=== PATIENT | male | born 1955 | race Caucasian/White ===

== ENCOUNTER 2018-03-10 15:45 | Outpatient (CLI) | payer OTHER ==
--- NOTE | 2018-03-10 21:21 | MRI Report ---
Reason: MILD TRAUMATIC BRAIN INJURY, WO LOSS OF CONSCIOUSN Procedure Date: 03/10/2018 Accession Number: [id number] / [id number] Procedure: MRI - Brain W/O CPT Code: FULL RESULT: EXAM: MRI BRAIN WITHOUT CONTRAST EXAM DATE: 03/10/2018 04:37 PM. CLINICAL HISTORY: 63-year-old male, mild traumatic brain injury. No loss of consciousness. COMPARISON: None. TECHNIQUE: Multiplanar, multisequence T1-weighted and fluid-sensitive MR sequences of the brain were performed. Sequences optimized for routine evaluation. Other: None. IV Contrast: None. FINDINGS: Brain Volume: Normal for age. Parenchyma/Dura: No mass, acute infarct or hemorrhage. No white matter lesions identified. No parenchymal foci of susceptibility artifact. Ventricles/Cisterns: No hydrocephalus. No abnormal extra-axial fluid collection or hemorrhage. Orbits: Symmetric and unremarkable. Sella Turcica: The pituitary gland, cavernous sinuses, suprasellar cistern and optic chiasm are unremarkable. IAC: Symmetric and unremarkable. Vasculature: Normal signal flow void is seen in the major arterial structures at the skull base. Sinuses: Mild to moderate medel sinus mucosal thickening. Bones: No focal pathologic appearing marrow signal changes. Other: None. IMPRESSION: 1. Normal brain MRI. No MRI evidence of acute intracranial abnormality. Specifically, no evidence of acute or subacute infarct, acute intracranial hemorrhage, mass, midline shift, or hydrocephalus. No white matter lesions. No MRI evidence of traumatic brain injury/diffuse axonal injury. [facility]
== END 2018-03-10 15:46 | disposition home or self-care (01) ==
LOC: DI 15:45
PROVIDERS: ATTEND Psychiatry & Neurology Neurology
DX: S06.9X0S Unspecified intracranial injury without loss of consciousness, sequela (principal)
CPT/HCPCS: 70551

== ENCOUNTER 2018-11-17 08:25 | Outpatient (CLI) | payer OTHER ==
--- NOTE | 2018-11-17 17:57 | MRI Report ---
Reason: RADICULOPATHY, CERVICAL REGION Procedure Date: 11/17/2018 Accession Number: [id number] / [id number] Procedure: MRI - Cervical Spine W/O CPT Code: FULL RESULT: EXAM: MRI CERVICAL SPINE WITHOUT CONTRAST EXAM DATE: 11/17/2018 09:10 AM. CLINICAL HISTORY: Right arm numbness and weakness. COMPARISONS: None. TECHNIQUE: Multiplanar, multisequence T1-weighted and fluid-sensitive sequences of the cervical spine without contrast. Other: None. FINDINGS: Neurologic Structures: The visualized posterior fossa structures are unremarkable. No signal abnormality in the visualized spinal cord. Alignment: No scoliosis or spondylolisthesis. Bone Marrow: No acute fracture or bone lesions. Interspace Levels/Facets: The craniocervical junction is unremarkable. C1-C2: Unremarkable. C2-C3: Mild to moderate left facet arthropathy. Mild to moderate left foraminal stenosis. C3-C4: Bilateral uncovertebral joint osteophytes. Mild left and moderate right facet arthropathy. Severe right and moderate to severe left foraminal stenoses. C4-C5: Severe left and mild right facet arthropathy. Moderate to severe left and mild right foraminal stenoses. C5-C6: Degenerative endplate changes. Moderate to severe disk space narrowing. Small disk bulge/osteophyte complex and bilateral uncovertebral joint osteophytes. Mild canal stenosis. Severe foraminal stenoses. C6-C7: Small disk bulge. Moderate to severe left and mild right foraminal stenoses. C7-T1: Moderate left and mild to moderate right facet arthropathy. Moderate right and mild to moderate left foraminal stenoses. T1-T2: Tiny posterior right paracentral disk protrusion/osteophyte complex. Moderate to severe right and mild to moderate left foraminal stenoses. Musculature: Normal. No edema or fatty atrophy. Other: There is a probable nondominant left vertebral artery variant. Otherwise, the paravertebral soft tissues are unremarkable. IMPRESSION: 1. Multilevel degenerative disk changes, facet arthropathy, and osteophytosis. There are varying degrees of stenoses. Please see above for level by level details. [facility]
== END 2018-11-17 08:26 | disposition home or self-care (01) ==
LOC: DI 08:25
DX: M50.30 Other cervical disc degeneration, unspecified cervical region (principal); M48.02 Spinal stenosis, cervical region; M47.812 Spondylosis without myelopathy or radiculopathy, cervical region
CPT/HCPCS: 72141

== ENCOUNTER 2020-06-04 23:02 | Emergency (ER) | payer OTHER ==
--- NOTE | 2020-06-04 23:36 | ED Physician Documentation ---
PD HPI ABD PAIN - Stated complaint Stated Complaint: RT SIDE PX - Chief complaint Chief Complaint: Abd Pain - History obtained from History obtained from: Patient - History of Present Illness Timing - onset: Enter time (20:00), Today Timing - details: Abrupt onset, Intermittant, Waxing and waning Pain level now: 3 Quality: Pain Location: Other (right flank) Radiation: Lower back Improved by: Laying still (positional component "to some extent" (per patient)) Worsened by: Other (no apparent exacerbating factors) Associated symptoms: No: Fever, Nausea, Vomiting, Dysuria, Hematuria Similar symptoms before: Other (has had similar, milder episodes which were self-limited and thus did not seek medical attention in the past) Recently seen: Not recently seen - Additional information Additional information: c/o episodic right flank pain since 8 PM tonight. Initial onset while at home at rest (watching TV) Review of Systems Constitutional: denies: Fever, Chills, Sweats Cardiac: reports: Reviewed and negative Respiratory: reports: Reviewed and negative GI: denies: Abdominal Pain, Nausea, Vomiting : denies: Dysuria, Frequency, Hematuria Skin: denies: Rash PD PAST MEDICAL HISTORY - Past Medical History Past Medical History: Yes Cardiovascular: High cholesterol - Present Medications Home Medications: Ambulatory Orders Medication Instructions Recorded Confirmed Atorvastatin [Lipitor] 20 mg PO 06/05/20 Beclomethasone 80 Mcg [Qvar 80] 2 puffs INH DAILY 06/05/20 06/05/20 Budesonide [Entocort EC] 9 mg PO DAILY 06/05/20 06/05/20 Diclofenac Sodium 50 mg PO BID PRN #20 tablet. 06/05/20 Diclofenac Sodium [Voltaren TOP 06/05/20 Arthritis Pain] Montelukast [Singulair] 10 mg PO DAILY PM 06/05/20 06/05/20 - Allergies Allergies/Adverse Reactions: Allergies Allergy/AdvReac Type Severity Reaction Status Date / Time No Known Drug Allergies Allergy Verified 06/04/20 23:06 - Living Situation Living Situation: reports: With family Living Arrangement: reports: At home PD ED PE NORMAL - Vitals Vital signs reviewed: Yes - General General: Alert and oriented X 3, No acute distress, Well developed/nourished - Cardiac Cardiac: RRR, No murmur - Respiratory Respiratory: No respiratory distress, Clear bilaterally - Abdomen Abdomen: Soft, Non tender - Derm Derm: Normal color, Warm and dry, No rash Results - Vitals Vitals: Vital Signs - 24 hr 06/04/20 06/05/20 23:06 02:13 Temperature 36.6 C 36.5 C Heart Rate 69 63 Respiratory 16 14 Rate Blood Pressure 135/81 H 125/85 H O2 Saturation 98 99 Oxygen O2 Source Room air - Labs Labs: Laboratory Tests 06/04/20 06/04/20 06/04/20 00:04 00:04 23:40 WBC 8.6 RBC 4.39 L Hgb 14.4 Hct 43.5 MCV 99.1 H MCH 32.8 H MCHC 33.1 RDW 12.2 Plt Count 240 MPV 8.8 Neut # (Auto) 5.2 Lymph # (Auto) 2.3 [place] # (Auto) 0.8 Eos # (Auto) 0.2 Baso # (Auto) 0.1 Absolute Nucleated RBC 0.00 Nucleated RBC % 0.0 Sodium 137 Potassium 3.8 Chloride 104 Carbon Dioxide 24 Anion Gap 9.0 BUN 26 H Creatinine 1.0 Estimated GFR (MDRD) 75 L Glucose 101 H Calcium 9.3 Total Bilirubin 0.4 AST 20 ALT 22 Alkaline Phosphatase 54 Total Protein 7.1 Albumin 4.5 Globulin 2.6 Albumin/Globulin Ratio 1.7 Lipase 36 Urine Color YELLOW Urine Clarity CLEAR Urine pH 6.5 Ur Specific Nichols <=1.005 Urine Protein NEGATIVE Urine Glucose (UA) NEGATIVE Urine Ketones NEGATIVE Urine Occult Blood NEGATIVE Urine Nitrite NEGATIVE Urine Bilirubin NEGATIVE Urine Urobilinogen 0.2 (NORMAL) Ur Leukocyte Esterase NEGATIVE Ur Microscopic Review NOT INDICATED Urine Culture Comments NOT INDICATED - Rads (name of study) CT A/P Radiology: Prelim report reviewed, See rad report PD MEDICAL DECISION MAKING - ED course Complexity details: reviewed results, re-evaluated patient, considered differential, d/w patient ED course: test results are unrevealing of etiology of patient's right flank pain, including blood tests, UA, and CT A/P. Incidental finding of "nonspecific 1.1 cm left lower lobe subpleural density" (per radiologist's report) is d/w patient and f/u with PMD recommended. Departure - Departure Disposition: 01 Home, Self Care Clinical Impression: Flank pain Condition: Good Instructions: ED Flank Pain Uncertain Cause Follow-Up: Sasha Patten MD [Primary Care Provider] - Within 1 week Prescriptions: Diclofenac Sodium 50 mg PO BID PRN #20 tablet.dr RAMACHANDRAN Reason: Pain Discharge Date/Time: 06/05/20 02:13
[2020-06-05 00:09] LABS: BASOPHILS # (AUTO) 0.1 10^3/uL (0.0-0.1); BASOPHILS % (AUTO) 0.7 %; EOSINOPHILS # (AUTO) 0.2 10^3/uL (0.0-0.7); EOSINOPHILS % (AUTO) 2.4 %; HGB - HEMOGLOBIN 14.4 g/dL (14.0-18.0); LYMPHOCYTES # (AUTO) 2.3 10^3/uL (1.5-3.5); LYMPHOCYTES % (AUTO) 27.1 %; MEAN CORPUSCULAR HEMOGLOBIN 32.8 pg (27.0-31.0); MEAN CORPUSCULAR HGB CONC 33.1 g/dL (32.0-36.0); MEAN CORPUSCULAR VOLUME 99.1 fL (80.0-94.0); MEAN PLATELET VOLUME 8.8 fL (7.4-11.4); MONOCYTES # (AUTO) 0.8 10^3/uL (0.0-1.0); MONOCYTES % (AUTO) 9.3 %; NEUTROPHILS # (AUTO) 5.2 10^3/uL (1.5-6.6); NEUTROPHILS % (AUTO) 60.2 %; PLT - PLATELET COUNT 240 10^3/uL (130-450); RED BLOOD COUNT 4.39 10^6/uL (4.70-6.10); RED CELL DISTRIBUTION WIDTH 12.2 % (12.0-15.0); WHITE BLOOD COUNT 8.6 x10^3/uL (4.8-10.8)
[2020-06-05 00:27] LABS: ALBUMIN 4.5 g/dL (3.2-5.5); ALBUMIN/GLOBULIN RATIO 1.7 (1.0-2.2); BILIRUBIN,TOTAL 0.4 mg/dL (0.2-1.0); CALCIUM 9.3 mg/dL (8.5-10.3); TOTAL PROTEIN 7.1 g/dL (6.7-8.2)
[2020-06-05] MEDS ORDERED: KETOROLAC 60 MG/2 ML VIAL IM STA (01:11)
[2020-06-05 01:23] LABS: BILIRUBIN,URINE NEGATIVE (NEGATIVE); CLARITY,URINE CLEAR (CLEAR); GLUCOSE, URINE (UA) NEGATIVE (NEGATIVE); KETONES,URINE (UA) NEGATIVE (NEGATIVE); LEUKOCYTE ESTERASE, URINE NEGATIVE (NEGATIVE); NITRITE,URINE NEGATIVE (NEGATIVE); OCCULT BLOOD,URINE NEGATIVE (NEGATIVE); PH,URINE 6.5 PH (5.0-7.5); PROTEIN,URINE NEGATIVE (NEGATIVE); UROBILINOGEN,URINE 0.2 (NORMAL) E.U./dL (NORMAL)
[2020-06-05 02:14] VITALS: BP 125/85
--- NOTE | 2020-06-05 08:09 | CT Report ---
PROCEDURE: Abdomen/Pelvis WO INDICATIONS: right flank pain TECHNIQUE: Noncontrast 5 mm thick sections acquired from the diaphragms to the symphysis. 5 mm coronal and sagi ttal reformats were then performed. For radiation dose reduction, the following was used: automated exposure control, adjustment of mA and/or kV according to patient size. COMPARISON: None. FINDINGS: Image quality: Excellent. ABDOMEN: Lung bases: There is a 1.4 cm subpleural nodule with central lucency in the lower lobe. Heart size i s normal. Solid organs: Liver and spleen are normal in size. Gallbladder is normal. Pancreas is normal in co ntours. No adrenal nodules. Kidneys are normal in size, without hydronephrosis or nephrolithiasis. Peritoneum and bowel: Unenhanced bowel loops demonstrate normal wall thickness and caliber. Normal appendix. No free fluid or air. Nodes and vessels: No retroperitoneal or mesenteric adenopathy by size criteria. Aorta and inferior vena cava are normal in caliber. Miscellaneous: No ventral hernias. PELVIS: Genitourinary: Bladder wall thickness is normal. Miscellaneous: No inguinal hernias or adenopathy. Bones: No suspicious bony lesions. No vertebral body compression fractures. Degenerative changes n oted in lumbar spine. IMPRESSION: 1. No renal stone or hydronephrosis. 2. Normal appendix. 3. A 1.4 cm subpleural nodule in the left lower lobe. Infectious or inflammatory etiology is favored. Recommend a follow-up CT in 3 months. No significant discrepancy with the preliminary interpretation. Reviewed by: Juan Pablo Mcneill MD on 06/05/2020 8:07 AM PST Approved by: Juan Pablo Mcneill MD on 06/05/2020 8:07 AM PST Station ID: [id number]
== END 2020-06-05 02:13 | disposition home or self-care (01) ==
LOC: ED 23:02
DX: R10.11 Right upper quadrant pain (principal)
CPT/HCPCS: 36415; 74176; 80053; 81001; 81003; 83690; 85025; 87086; 96372; 99284

== ENCOUNTER 2023-12-18 11:29 | Outpatient (CLI) | payer MEDICARE, OTHER ==
--- NOTE | 2023-12-18 20:40 | Ultrasound Report ---
PROCEDURE: Pelvic Limited INDICATIONS: INGUINAL PAIN TECHNIQUE: Real-time transabdominal scanning was performed of the right groin, with image documentation. COMPARISON: CT abdomen and pelvis 06/05/2020 FINDINGS: No right inguinal hernia. Valsalva performed. No mass or fluid collection. IMPRESSION: No right inguinal hernia demonstrated. Reviewed by: Marlon Orosco MD on 12/18/2023 8:38 PM PDT Approved by: Marlon Orosco MD on 12/18/2023 8:38 PM PDT Station ID: [id number]
== END 2023-12-18 11:30 | disposition home or self-care (01) ==
LOC: DI 11:29
PROVIDERS: ATTEND Urology
DX: R10.31 Right lower quadrant pain (principal)